=== PATIENT | male | born 2000 | race Caucasian/White ===

== ENCOUNTER 2019-05-19 15:32 | Emergency (ER) | payer OTHER ==
[~2019-05-19] VITALS: Ht 172.7 cm; Wt 94.9 kg
[2019-05-19 15:39] VITALS: BP 143/75
[2019-05-19 17:07] VITALS: BP 143/75
[2019-05-19 17:56] LABS: BASOPHILS # (AUTO) 0.1 K/uL (0.00-0.22); BASOPHILS % (AUTO) 0.6 % (0.0-2.0); EOSINOPHILS # (AUTO) 0.1 K/uL (0-0.4); EOSINOPHILS % (AUTO) 0.7 % (0.0-4.0); LYMPHOCYTES # (AUTO) 5.1 K/uL (2.0-11.5); MEAN CORPUSCULAR HEMOGLOBIN 29 pg (27-31); MEAN CORPUSCULAR HGB CONC 34 g/dL (33-37); MEAN CORPUSCULAR VOLUME 85.3 fL (80-94); MONOCYTES # (AUTO) 0.6 K/uL (0.8-1.0); MONOCYTES % (AUTO) 6.7 % (1.7-9.3); PLATELET COUNT (AUTO) 232 K/uL (140-450); RED BLOOD CELL COUNT(AUTO) 5.16 MIL/uL (4.20-6.10); RED CELL DISTRIBUTION WIDTH 12.6 % (11.6-13.7); WHITE BLOOD COUNT (AUTO) 8.8 K/uL (4.5-11.0)
[2019-05-19 18:13] LABS: ALBUMIN 4.1 g/dL (3.4-5.0); ANION GAP 16.8 (8-16); CARBON DIOXIDE 25.1 mmol/L (21-32); CREATININE 0.9 mg/dL (0.7-1.3); POTASSIUM 3.9 mmol/L (3.5-5.1); TOTAL BILIRUBIN 1.7 mg/dL (0.0-1.0)
[2019-05-19] MEDS: KETOROLAC 30 MG/ML VIAL IM ONE (19:00)
== END 2019-05-19 18:55 | disposition home or self-care (01) ==
LOC: MED 15:32
DX: B27.90 Infectious mononucleosis, unspecified without complication (principal); R74.0 Nonspecific elevation of levels of transaminase and lactic acid dehydrogenase [LDH]
CPT/HCPCS: 36415; 80053; 85025; 86308; 87081; 96372; 99283; J1885